=== PATIENT | female | born 1945 | race Caucasian/White ===

== ENCOUNTER 2023-09-30 17:26 | Emergency (ER) | payer MEDICARE, BC ==
[~2023-09-30] VITALS: Ht 160 cm; Wt 80.0 kg
[2023-09-30 17:47] VITALS: PULSE 65; RESP 12; O2SAT 95
[2023-09-30 18:43] LABS: Alanine Aminotransferase 22 U/L (7-40); Albumin 4.4 g/dL (3.2-4.8); Alkaline Phosphatase 99 U/L (46-116); Anion Gap 8 (5-15); Aspartate Aminotransferase 16 U/L (13-40); BUN/Creatinine Ratio 19.1 (10.0-20.0); Basophils # (auto) 0.1 10 ^3/uL (0-0.2); Bilirubin, Total 0.4 mg/dL (0.2-1.0); Blood Urea Nitrogen 25 mg/dL (9-23); Calcium 9.8 mg/dL (8.5-10.1); Carbon Dioxide 29 mmol/L (20-30); Chloride 104 mmol/L (98-107); Eosinophils # (auto) 0.1 10 ^3/uL (0-0.8); Eosinophils % (auto) 2.2 % (0.0-7.0); Glucose 106 mg/dL (74-106); Hematocrit 39.7 % (36.0-46.0); Hemoglobin 13.2 g/dL (12.2-16.2); Lymphocytes # (auto) 1.7 10 ^3/uL (0.4-5.4); Lymphocytes % (auto) 29.7 % (10.0-50.0); Mean Corpuscular Hgb Conc. 33.3 g/dL (32.0-36.0); Mean Corpuscular Volume 92.9 fL (80.0-100.0); Monocytes # (auto) 0.6 10 ^3/uL (0-1.3); Neutrophils # (auto) 3.2 10 ^3/uL (1.6-8.6); Neutrophils % (auto) 56.1 % (37.0-80.0); Nucleated Red Blood Cells % 0.1 %; Potassium 4.2 mmol/L (3.5-5.1); Red Blood Cells 4.27 10^6/uL (4.0-5.20); Red Cell Distribution Width 14.4 % (11.8-14.3); Sodium 141 mmol/L (136-145); Total Protein 6.6 g/dL (5.7-8.2); White Blood Cell 5.7 10^3/uL (4.4-10.8)
[2023-09-30 18:58] LABS: INR 1.03 (0.9-1.15); Partial Thromboplastin Time 31.3 SEC (24.5-34.5); Prothrombin Time 10.8 sec (9.3-11.8)
[2023-09-30] MEDS: METOCLOPRAMIDE HCL 5MG/ml INJ 2ml VIAL IV ONE (19:05)
[2023-09-30] MEDS: cloNIDine HCL 0.1 MG TAB PO ONE (19:05)
[2023-09-30 19:30] VITALS: PULSE 60; RESP 11; O2SAT 95
[2023-09-30] MEDS: METOCLOPRAMIDE HCL 5MG/ml INJ 2ml VIAL ONE (19:53)
[2023-09-30] MEDS: IOHEXOL 350 MG/ML 100ML IJ ONE (21:17)
[2023-09-30 22:00] LABS: Urine Bacteria NONE SEEN /hpf (None Seen); Urine Blood Negative /uL (Negative); Urine Clarity HAZY (Clear); Urine Color Yellow (Yellow); Urine Hyaline Cast MANY /lpf (0 - 2); Urine Mucus FEW (None Seen); Urine Protein, UAD TRACE (Negative); Urine Specific Gravity 1.019 (1.001-1.035); Urine Urobilinogen Normal (Negative); Urine WBC 13 /hpf (0 - 5); Urine pH 5.5 (5.0-8.0)
[2023-09-30] MEDS: LABETALOL HCL 5 MG/ML 4ML SYRINGE IV ONE (22:50)
[2023-09-30] MEDS ORDERED: METO-281 PO (23:44)
[2023-09-30 23:56] VITALS: BP 138/57; PULSE 60; RESP 14; TEMP 98; O2SAT 94
[2023-10-01] MEDS ORDERED: IOHEXOL 350 MG/ML 100ML IJ ONE (01:58)
== END 2023-10-01 00:02 | disposition home or self-care (01) ==
LOC: ER 17:26
DX: G43.909 Migraine, unspecified, not intractable, without status migrainosus (principal); I10 Essential (primary) hypertension; R07.89 Other chest pain; Z79.899 Other long term (current) drug therapy; Z88.2 Allergy status to sulfonamides
CPT/HCPCS: 36415; 70450; 70496; 71045; 72125; 80053; 81001; 83880; 84484; 85025; 85379; 85610; 85730; 93005; 96374; 96375; 99285; J2765; J3490; Q9967

== ENCOUNTER 2024-03-03 16:01 | Inpatient (IN) | payer MEDICARE, BC ==
[2024-03-03] VITALS (10 sets, daily range): BP systolic 127–168; BP diastolic 60–82; PULSE 81–108; RESP 13–19; TEMP 98–98.5; O2SAT 94–96
[~2024-03-03] VITALS: Ht 167.6 cm; Wt 83.4 kg
[~2024-03-03 16:01] MED LIST: METO-281 PO
[2024-03-03 17:35] LABS: Eosinophils # (auto) 0.1 10 ^3/uL (0-0.8); Lymphocytes # (auto) 1.4 10 ^3/uL (0.4-5.4); Mean Corpuscular Volume 87.7 fL (80.0-100.0); Monocytes # (auto) 0.7 10 ^3/uL (0-1.3); Neutrophils # (auto) 4.4 10 ^3/uL (1.6-8.6); White Blood Cell 6.6 10^3/uL (4.4-10.8)
[2024-03-03 17:36] LABS: Basophils # (auto) 0 10 ^3/uL (0-0.2); Basophils % (auto) 0.8 % (0.0-2.0); Eosinophils % (auto) 1.5 % (0.0-7.0); Hematocrit 22.3 % (36.0-46.0); Hemoglobin 7.3 g/dL (12.2-16.2); Lymphocytes % (auto) 20.6 % (10.0-50.0); Mean Corpuscular Hemoglobin 28.6 pg (28.0-32.0); Mean Corpuscular Hgb Conc. 32.6 g/dL (32.0-36.0); Monocytes % (auto) 10.3 % (0.0-12.0); Neutrophils % (auto) 66.8 % (37.0-80.0); Nucleated Red Blood Cells % 0.2 %; Platelet Count (auto) 255 10^3/uL (140-450); Red Blood Cells 2.54 10^6/uL (4.0-5.20); Red Cell Distribution Width 19.5 % (11.8-14.3)
[2024-03-03 17:50] LABS: Alanine Aminotransferase 28 U/L (7-40); Albumin 3.8 g/dL (3.2-4.8); Alkaline Phosphatase 113 U/L (46-116); Anion Gap 5 (5-15); Aspartate Aminotransferase 19 U/L (13-40); BUN/Creatinine Ratio 16.3 (10.0-20.0); Bilirubin, Total 0.7 mg/dL (0.2-1.0); Blood Urea Nitrogen 17 mg/dL (9-23); Calcium 9.1 mg/dL (8.7-10.4); Carbon Dioxide 27 mmol/L (20-30); Chloride 108 mmol/L (98-107); Glucose 108 mg/dL (74-106); Sodium 140 mmol/L (136-145); Total Protein 5.9 g/dL (5.7-8.2)
[2024-03-03 17:54] LABS: INR 1.15 (0.9-1.15); Partial Thromboplastin Time 27.1 SEC (24.5-34.5); Prothrombin Time 12.1 sec (9.3-11.8)
[2024-03-03] MEDS: SODIUM CHLORIDE 0.9% 1,000 ML IV SCH (19:30)
[2024-03-03 19:41] LABS: % Iron Saturation 5.2 % (15-50)
[2024-03-03] MEDS: PANTOPRAZOLE 40 MG/10 ML VIAL INJ IV SCH (20:55)
[2024-03-03] MEDS: ONDANSETRON HCL 4 MG/2 ML VIAL IV PRN (20:55)
[2024-03-03 21:46] LABS: Urine Bacteria FEW /hpf (None Seen); Urine Blood Negative /uL (Negative); Urine Clarity Clear (Clear); Urine Color Light-Yellow (Yellow); Urine Protein, UAD Negative (Negative); Urine Specific Gravity 1.008 (1.001-1.035); Urine Urobilinogen Normal (Negative); Urine WBC 2 /hpf (0 - 5)
== END 2024-03-03 23:37 | disposition left against medical advice (07) | DRG 378 ==
LOC: ER 16:01 → OVERFLOW 19:26
PROVIDERS: ADMIT Nurse Practitioner; ATTEND Nurse Practitioner
PROC: 30233N1 Transfusion of Nonautologous Red Blood Cells into Peripheral Vein, Percutaneous Approach (ICD-10-PCS; principal; 2024-03-03)
DX: K92.2 Gastrointestinal hemorrhage, unspecified (principal); D68.9 Coagulation defect, unspecified; N17.9 Acute kidney failure, unspecified; I48.91 Unspecified atrial fibrillation; I10 Essential (primary) hypertension; Z88.2 Allergy status to sulfonamides; Z79.899 Other long term (current) drug therapy; D50.0 Iron deficiency anemia secondary to blood loss (chronic)
CPT/HCPCS: 36415; 80053; 81001; 83540; 83550; 85025; 85610; 85730; 86850; 86900; 86901; 86920; 96374; 96375; G0378; J2405; J2470

== ENCOUNTER 2025-04-17 12:39 | Emergency (ER) | payer MEDICARE, BC ==
[~2025-04-17] VITALS: Ht 157.5 cm; Wt 81.8 kg
[2025-04-17 12:45] VITALS: TEMP 98.6
[2025-04-17 13:00] VITALS: BP 207/134; PULSE 99; RESP 12; O2SAT 94
[2025-04-17] MEDS: LABETALOL HCL 20 MG/4 ML VL IV ONE (14:11)
--- NOTE | 2025-04-17 14:36 | ED.PDOC ---
History of Present Illness HPI Comments 79 y/o F, with PMHx of HTN and AFib is BIBA for CC of dizziness. EMS reports, patient is coming from physical therapist office where staff called d/t patient being hypertensive with a blood pressure of 225/135mmHg and c/o associated dizziness. At this time patient has voiced that she would like to leave the hospital AMA; risk and benefits were discussed with patient and family members. Chief Complaint: Dizziness Time Seen by MD: 14:00 Primary Care Provider: TIFFANIE Kern Notes: Nurses Notes, Medications, Allergies Allergies: Coded Allergies: Codeine (Verified Allergy, Unknown, 04/17/25) Sulfa Antibiotics (Verified Allergy, Unknown, 09/30/23) Uncoded Allergies: REG (Allergy, Unknown, 09/30/23) Home Meds Active Scripts Metoclopramide Hcl (Reglan) 10 Mg Tab, 10 MG PO TIDPRN PRN for 10 Days, #30 TAB Prov:JAYE LAMB DO 09/30/23 Information Source: Patient Mode of Arrival: EMS Severity: Moderate Timing: Minutes Duration: Since onset Prehospital treatment: None Past Medical History PAST MEDICAL HISTORY: AFIB, HTN Surgical History: Pacemaker 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: Denies all 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 Hx Family History Family History: Reviewed,noncontributory to illness Social History Smoker: Non-Smoker Alcohol: Denies ETOH Use Drugs: Denies Drug Use Lives In: Home Constitutional: denies: chills, diaphoresis, fatigue, fever, malaise, sweats, weakness, others EENTM: denies: blurred vision, double vision, ear bleeding, ear discharge, ear drainage, ear pain, ear ringing, eye pain, eye redness, hearing loss, mouth pain, mouth swelling, nasal discharge, nose bleeding, nose congestion, nose pain, photophobia, tearing, throat pain, throat swelling, voice changes, others Respiratory: denies: cough, hemoptysis, orthopnea, SOB at rest, shortness of breath, SOB with excertion, stridor, wheezing, others Cardiovascular: denies: chest pain, dizzy spells, diaphoresis, Dyspnea on exertion, edema, irregular heart beat, left arm pain, lightheadedness, palpitations, PND, syncope, others Gastrointestinal: denies: abdomen distended, abdominal pain, blood streaked bowels, constipated, diarrhea, dysphagia, difficulty swallowing, hematemesis, melena, nausea, poor appetite, poor fluid intake, rectal bleeding, rectal pain, vomiting, others Genitourinary: denies: abnormal vagina bleeding, burning, dyspareunia, dysuria, flank pain, frequency, hematuria, incontinence, pain, , vagina discharge, urgency, others Neurological: reports: dizziness; denies: fainting, headache, left sided numbness, left sided weakness, numbness, paresthesia, pre-existing deficit, right sided numbness, right sided weakness, seizure, speech problems, tingling, tremors, weakness, others Musculoskeletal: denies: back pain, gout, joint pain, joint swelling, muscle pain, muscle stiffness, neck pain, others Integumetry: denies: bruises, change in color, change in hair/nails, dryness, laceration, lesions, lumps, rash, wounds, others Allergic/Immunocompromised: denies: Difficulty Healing, Frequent Infections, Hives, Itching, others Hematologic/Lymphatic: denies: anemia, blood clots, easy bleeding, easy bruising, swollen glands, others Endocrine: denies: excessive hunger, excessive sweating, excessive thirst, excessive urination, flushing, intolerance to cold, intolerance to heat, unexplained weight gain, unexplained weight loss, others Psychiatric: denies: anxiety, bipolar disorder, depression, hopeless, panic disorder, schizophrenia, sleepless, suicidal, others All Other Systems: Reviewed and Negative Physical Exam General Appearance: Moderate Distress HEENT: Normal ENT Inspection, Pharynx Normal, TMs Normal Neck: Full Range of Motion, Non-Tender, Normal, Normal Inspection Respiratory: Chest Non-Tender, Lungs Clear, No Accessory Muscle Use, No Respiratory Distress, Normal Breath Sounds Cardiovascular: No Edema, No JVD, No Murmur, No Gallop, Normal Peripheral Pulses, Regular Rate/Rhythm Breast Exam: Deferred Gastrointestinal: No Organomegaly, Non Tender, No Pulsatile Mass, Normal Bowel Sounds, Soft Genitalia: Deferred Pelvic: Deferred Rectal: Deferred Extremities: No calf tenderness, Normal capillary refill, Normal inspection, Normal range of motion, Non-tender, No pedal edema Musculoskeletal : Apperance: Normal Neurologic: Alert, chimney supervisor brick II-XII nml as Tested, No Motor Deficits, Normal Affect, Normal Mood, No Sensory Deficits Cerebellar Function: Normal Reflexes: Normal Skin: Dry, Normal Color, Warm Peripheral Pulses: 3+ Radial (R), 3+ Radial (L) Lymphatic: No Adenopathy Was a procedure done? Was a procedure done?: No Differential Dx Considerations may include: HYPERTENSIVE URGENCY X-Ray, Labs, Meds, VS Vital Signs Date Time Temp Pulse Resp B/P (MAP) Pulse Ox O2 Delivery O2 Flow Rate FiO2 04/17/25 14:11 91 164/84 04/17/25 13:00 99 12 207/134 (158) 94 04/17/25 13:00 Room Air* 0 21 04/17/25 12:50 101 04/17/25 12:45 98.6 80 18 225/125 98 98.6 Current Medications Medications (Trade) Dose Ordered Sig/Jaja Route Start Time Stop Time Status Last Admin Labetalol HCl (Labetalol HCl) 10 mg ONCE ONCE IV 04/17/25 14:00 04/17/25 14:01 DC 04/17/25 14:11 Patient alert. Came in because of high blood pressure. Vitals stable. Answering questions. Patient normalized without any medication. She insists on going home. States that she does not have any symptoms. No dizziness. No headache. No shortness a breath. No chest pain. Explained to the patient. Continue monitoring. Time of 1ST Reevaluation: 14:30 Reevaluation 1ST: Unchanged Patient Education/Counseling: Diagnosis, Treatment Family Education/Counseling: Diagnosis, Treatment SEPSIS Sepsis Screen Date sepsis recognized/suspect: Apr 17, 2025 Time Sepsis recognized/suspect: 1245 Recent Procedure: No On Antibiotic Therapy: No Respiratory Rate >20: No Heart Rate >90: No Temp<36 C (96.8 F) or >38.3 C: No SBP <90 or MAP <65 mmHG: No New Acute Mental Status Change: No Is the patient on CPAP, BIPAP,: No Physician Orders Electrocardigram (04/17/25 13:02) Vital Signs Date Time Temp Pulse Resp B/P (MAP) Pulse Ox O2 Delivery O2 Flow Rate FiO2 04/17/25 14:11 91 164/84 04/17/25 13:00 99 12 207/134 (158) 94 04/17/25 13:00 Room Air* 0 21 04/17/25 12:50 101 04/17/25 12:45 98.6 80 18 225/125 98 98.6 Medications Medications Dose Ordered Sig/Jaja Route Start Time Stop Time Status Last Admin Dose Admin Labetalol HCl 10 mg ONCE ONCE IV 04/17/25 14:00 04/17/25 14:01 DC 04/17/25 14:11 Departure 1 Departure Time of Disposition: 15:27 Impression: Primary Impression: Hypertensive urgency Disposition: ADMITTED INPATIENT Admit to: Med Surg Condition: Guarded Critical Care Note Critical Care Time?: No Stability Stability form required: No Heart Score Heart Score: Heart Score Response (Comments) Value History N/A 0 EKG N/A 0 Age N/A 0 Risk Factors N/A 0 Troponin N/A 0 Total 0 I personally scribed for MARCOS BOLTON MD ([email or web address]) on 04/17/25 at 14:36. Electronically submitted by Sierra Galvez ([email or web address]). MARCOS BOLTON MD Apr 17, 2025 14:36
--- NOTE | 2025-04-17 15:49 | ECG ---
[facility] Test Date: 2025-04-17 Test Time: 12:50:38 Pat Name: FOX ORELLANA Department: [facility] ED Patient ID: [facility]-[id number] Room: Gender: F Director Dental Services: sheeba : 1945 Requested By: EMERGENCY EMERGENCY Order Number: [id number] Reading MD: Tono Johnson Measurements Intervals [place] Rate: 101 P: 0 MN: 0 QRS: 60 QRSD: 99 T: 30 QT: 359 QTc: 466 Interpretive Statements Afib/flut and V-paced complexes No further rhythm analysis attempted due to paced rhythm Low voltage, precordial leads Minimal ST depression, inferior leads Electronically Signed On 04-19-2025 22:11:26 PDT by Tono Johnson Please click the below link to view image of tracing.
== END 2025-04-17 14:25 | disposition left against medical advice (07) ==
LOC: ER 12:39 → EDBD 12:39 → ER 14:25
DX: I16.0 Hypertensive urgency (principal); I10 Essential (primary) hypertension; I48.91 Unspecified atrial fibrillation; Z88.2 Allergy status to sulfonamides; Z88.5 Allergy status to narcotic agent; Z95.0 Presence of cardiac pacemaker
CPT/HCPCS: 93005; 96374